=== PATIENT | female | born 1995 | race Two or more races ===

== ENCOUNTER 2018-08-14 22:48 | Emergency (ER) | payer MEDICAID ==
[~2018-08-14] VITALS: Ht 157.5 cm; Wt 77.0 kg
[2018-08-14 23:11] LABS: BASOPHILS % (AUTO) 0 % (0-1); EOSINOPHILS # (AUTO) 0.1 X10'3 (0-0.9); EOSINOPHILS % (AUTO) 0.6 % (0-6); HEMATOCRIT 39.5 % (35.0-45.0); HEMOGLOBIN 13.2 g/dl (12.0-16.0); LYMPHOCYTES # (AUTO) 0.6 X10'3 (1.1-4.8); LYMPHOCYTES % (AUTO) 3.6 % (21-51); MEAN CORPUSCULAR HEMOGLOBIN 29.5 PG (27.0-31.0); MEAN CORPUSCULAR HGB CONC 33.5 % (33.0-36.5); MEAN CORPUSCULAR VOLUME 88.1 FL (78-98); MEAN PLATELET VOLUME 8.2 FL (7.4-10.4); MONOCYTES # (AUTO) 0.6 X10'3 (0-0.9); MONOCYTES % (AUTO) 3.9 % (2-12); NEUTROPHILS # (AUTO) 15.5 X10'3 (1.8-7.7); NEUTROPHILS % (AUTO) 91.9 % (42-75); PLATELET COUNT 248 X10'3 (140-440); RED BLOOD COUNT 4.48 X10'6 (4.20-5.60); RED CELL DISTRIBUTION WIDTH 12.6 % (11.5-14.5); WHITE BLOOD COUNT 16.8 X10'3 (4.5-11.0)
[2018-08-14 23:51] LABS: INR 1.1 INR; PARTIAL THROMBOPLASTIN TIME 33 SECONDS (22-32); PROTHROMBIN TIME 11.4 SECONDS (9.0-12.0)
[2018-08-15] LABS: ALANINE AMINOTRANSFERASE 83 U/L (12-78); ALBUMIN 4.5 G/DL (3.4-5.0); ALBUMIN/GLOBULIN RATIO 1.2 (1.1-1.5); ALKALINE PHOSPHATASE 80 IU/L (46-116); ANION GAP 14 (8-16); ASPARTATE AMINO TRANSFERASE 98 U/L (10-37); BILIRUBIN,TOTAL 1.5 MG/DL (0.1-1.0); BLOOD UREA NITROGEN 17 MG/DL (7-18); BUN/CREATININE RATIO 29.8 (6.6-38.0); CALCIUM 9.6 MG/DL (8.5-10.1); CHLORIDE 99 MMOL/L (99-107); CREATININE 0.57 MG/DL (0.40-0.90); GLUCOSE 89 MG/DL (70-104); POTASSIUM 3.1 MMOL/L (3.5-5.1); SODIUM 135 MMOL/L (135-145); TOTAL PROTEIN 8.3 G/DL (6.4-8.2); eGFR > 90 ML/MIN
[2018-08-15] MEDS ORDERED: normal saline 1000ml 1,000 ML IV ONE (00:15)
[2018-08-15 00:38] LABS: PLATELET ESTIMATE NORMAL; TOTAL CELLS COUNTED 100; TOXIC GRANULATION 1+; TOXIC VACUOLATION FEW
[2018-08-15] MEDS ORDERED: ondansetron/PF 4mg/2ml inj IV ONE (01:00)
[2018-08-15] MEDS ORDERED: meclizine 12.5mg tablet PO ONE (01:00)
[2018-08-15 01:09] VITALS: BP 117/84
[2018-08-15 01:15] LABS: ACETAMINOPHEN 14.6 UG/ML (10-30)
[2018-08-15] MEDS ORDERED: normal saline 1000ml 1,000 ML IVB ONE (01:23)
[2018-08-15] MEDS ORDERED: potassium Cl 20 mEq SR tablet PO STA (01:51)
[2018-08-15] MEDS ORDERED: ONDA4TAB9 PO (01:58)
[2018-08-15] MEDS ORDERED: MECL-111 PO (01:58)
[2018-08-15] MEDS ORDERED: LEVO500T2 PO ×2 (02:02→20:42)
[2018-08-15] MEDS ORDERED: ONDA4TAB9 SL (20:42)
[2018-08-15] MEDS ORDERED: GUAI120015 PO (20:42)
== END 2018-08-15 02:13 | disposition home or self-care (01) ==
LOC: ER 22:49
DX: H81.10 Benign paroxysmal vertigo, unspecified ear (principal); J18.9 Pneumonia, unspecified organism; F12.90 Cannabis use, unspecified, uncomplicated; Z90.49 Acquired absence of other specified parts of digestive tract; Z79.899 Other long term (current) drug therapy
CPT/HCPCS: 36415; 71045; 80053; 80329; 84484; 85025; 85610; 85730; 93005; 96361; 96374; 99284; J2405; J7030; J8597

== ENCOUNTER 2018-08-15 15:19 | Emergency (ER) | payer MEDICAID ==
[~2018-08-15] VITALS: Ht 157.5 cm; Wt 72.0 kg
[~2018-08-15 15:19] MED LIST: LEVO500T2 PO; MECL-111 PO; ONDA4TAB9 PO
[2018-08-15] MEDS ORDERED: ipratropium/albuterol 3ml nebule NEB ONE (15:45)
[2018-08-15] MEDS ORDERED: normal saline 1000ML IV soln IV ONE (15:45)
[2018-08-15] MEDS ORDERED: methylPREDNISolone sod succ 125mg/2ml vial IV ONE (15:45)
[2018-08-15] MEDS ORDERED: CefTRIAXone 2gm/D5W 50ml 50 ML IV ONE (15:45)
[2018-08-15] MEDS ORDERED: azithromycin/NS 500mg/250ml 250 ML IV ONE (15:45)
[2018-08-15 16:08] LABS: BASOPHILS % (AUTO) 0 % (0-1); EOSINOPHILS % (AUTO) 0 % (0-6); HEMATOCRIT 33.7 % (35.0-45.0); HEMOGLOBIN 11.2 g/dl (12.0-16.0); LYMPHOCYTES # (AUTO) 0.4 X10'3 (1.1-4.8); MEAN CORPUSCULAR HEMOGLOBIN 29.5 PG (27.0-31.0); MEAN CORPUSCULAR HGB CONC 33.3 % (33.0-36.5); MEAN CORPUSCULAR VOLUME 88.7 FL (78-98); MEAN PLATELET VOLUME 8.2 FL (7.4-10.4); MONOCYTES # (AUTO) 0.3 X10'3 (0-0.9); MONOCYTES % (AUTO) 2.4 % (2-12); NEUTROPHILS % (AUTO) 94.6 % (42-75); PLATELET COUNT 206 X10'3 (140-440); WHITE BLOOD COUNT 12.7 X10'3 (4.5-11.0)
[2018-08-15 16:22] LABS: ALANINE AMINOTRANSFERASE 57 U/L (12-78); ALBUMIN 3.1 G/DL (3.4-5.0); ALBUMIN/GLOBULIN RATIO 0.9 (1.1-1.5); ALKALINE PHOSPHATASE 67 IU/L (46-116); ANION GAP 13 (8-16); ASPARTATE AMINO TRANSFERASE 29 U/L (10-37); BILIRUBIN,TOTAL 0.6 MG/DL (0.1-1.0); BLOOD UREA NITROGEN 8 MG/DL (7-18); BUN/CREATININE RATIO 12.3 (6.6-38.0); CALCIUM 8.3 MG/DL (8.5-10.1); CHLORIDE 100 MMOL/L (99-107); CREATININE 0.65 MG/DL (0.40-0.90); GLUCOSE 97 MG/DL (70-104); SODIUM 133 MMOL/L (135-145); TOTAL CARBON DIOXIDE 20.4 MMOL/L (24-32); TOTAL PROTEIN 6.7 G/DL (6.4-8.2); eGFR > 90 ML/MIN
[2018-08-15 16:28] LABS: PLATELET ESTIMATE NORMAL; TOTAL CELLS COUNTED 100
[2018-08-15] MEDS ORDERED: potassium Cl oral solution 20 MEQ/15 ML PO ONE (16:45)
[2018-08-15] MEDS ORDERED: oseltamivir phos 75mg capsule PO ONE (17:20)
[2018-08-15] MEDS ORDERED: ketorolac trometh. 30mg/ml inj. IV ONE (17:20)
[2018-08-15] MEDS ORDERED: morphine 4 MG/ML inj SYRINge IV ONE (17:20)
[2018-08-15] MEDS ORDERED: GUAI120015 PO (20:42)
[2018-08-15] MEDS ORDERED: ONDA4TAB9 SL (20:42)
[2018-08-15] MEDS ORDERED: LEVO500T2 PO (20:42)
[2018-08-15 20:51] VITALS: BP 139/74
== END 2018-08-15 20:54 | disposition home or self-care (01) ==
LOC: ER 15:20
DX: J10.08 Influenza due to other identified influenza virus with other specified pneumonia (principal); R65.10 Systemic inflammatory response syndrome (SIRS) of non-infectious origin without acute organ dysfunction; R42 Dizziness and giddiness; R53.1 Weakness; E66.9 Obesity, unspecified; F12.90 Cannabis use, unspecified, uncomplicated; Z90.49 Acquired absence of other specified parts of digestive tract; Z79.899 Other long term (current) drug therapy
CPT/HCPCS: 36415; 71045; 80053; 83605; 85025; 87040; 87077; 87186; 87502; 87503; 93005; 94640; 94760; 96365; 96366; 96368; 96375; 99284; J0456; J0696; J1885; J2270; J2930; J7030